=== PATIENT | male | born 1960 | race Caucasian/White ===

== ENCOUNTER 2019-03-27 14:34 | Emergency (ER) | payer OTHER ==
[~2019-03-27] VITALS: Ht 188 cm; Wt 115.2 kg
--- NOTE | 2019-03-27 15:02 | NUR ---
PT SENT BY PMD FOR NEW ONSET OF AFIB, PT IS AAOX4, NOT IN RESPIRATORY DISTRESS, HOOKED TO MONITOR, KEPT RESTED AND COMFORTABLE ,WILL CONTINUE TO MONITOR.
--- NOTE | 2019-03-27 15:05 | NUR ---
SEEN AND EXAMINED BY
--- NOTE | 2019-03-27 15:10 | NUR ---
IV LINE ESTABLISHED, BLOOD DRAWN AND SENT TO LAB.
[2019-03-27 15:48] LABS: BASOPHILS % (AUTO) 0.7 % (0.0-2.0); EOSINOPHILS % (AUTO) 1.9 % (0.0-6.0); HEMATOCRIT 49 % (39-51); HEMOGLOBIN 16.9 g/dL (13.5-17.5); LYMPHOCYTES # (AUTO) 1.7 /CMM (0.8-4.8); LYMPHOCYTES % (AUTO) 26.3 % (20.0-44.0); MEAN CORPUSCULAR HGB CONC 35 g/dl (31.0-36.0); MEAN CORPUSCULAR VOLUME 98 fL (80-96); MONOCYTES # (AUTO) 0.6 /CMM (0.1-1.30); MONOCYTES % (AUTO) 8.7 % (2.0-12.0); NEUTROPHILS % (AUTO) 62.4 % (43.0-81.0); PLATELET COUNT (AUTO) 200 /CMM (150-450); RED BLOOD CELL COUNT(AUTO) 4.97 MIL/uL (4.5-6.0); WHITE BLOOD COUNT (AUTO) 6.5 K/uL (4.3-11.0)
[2019-03-27 15:54] LABS: CALCIUM, SERUM 9.4 mg/dL (8.5-10.1); CARBON DIOXIDE 27 mmol/L (21-32); CHLORIDE 105 mmol/L (98-107); CREATININE 1.1 mg/dL (0.6-1.3); GLUCOSE 98 mg/dL (74-106); POTASSIUM 4.3 mmol/L (3.5-5.1); SODIUM SERUM 139 mmol/L (136-145); UREA NITROGEN, BLOOD 15 mg/dL (7-18)
[2019-03-27] MEDS ORDERED: ASPIRIN 81 MG TAB.CHEW PO ONE (17:00)
[2019-03-27] MEDS ORDERED: MULT-24 PO (17:05)
[2019-03-27] MEDS ORDERED: ASPI-992 PO (17:05)
[2019-03-27] MEDS ORDERED: ASPIRIN 81 MG TAB.CHEW ONE (17:07)
[2019-03-27 17:15] VITALS: BP 128/84
--- NOTE | 2019-03-27 17:15 | NUR ---
IV removed. Catheter intact and site benign. Pressure and 4x4 applied to site. No bleeding noted. Patient discharged to home in stable condition. Written and verbal after care instructions given. Patient verbalizes understanding of instruction.
== END 2019-03-27 17:15 | disposition home or self-care (01) ==
LOC: ER 14:43
DX: I48.91 Unspecified atrial fibrillation (principal); F17.210 Nicotine dependence, cigarettes, uncomplicated; I10 Essential (primary) hypertension; Z90.89 Acquired absence of other organs; Z79.82 Long term (current) use of aspirin
CPT/HCPCS: 36415; 71045-TC; 80048-TC; 84484-TC; 85025-TC

== ENCOUNTER 2021-02-12 21:45 | Emergency (ER) | payer OTHER ==
[~2021-02-12] VITALS: Ht 188 cm; Wt 106.6 kg
[~2021-02-12 21:45] MED LIST: ASPI-992 PO; MULT-24 PO
--- NOTE | 2021-02-12 22:00 | NUR ---
BIBSELF FROM HOME C/O L EYE PAIN SINCE WAKING UP TODAY W/ RED BUMP DENIES BLURRY VISION. RIGHT 1sT TOE BRUISING WITH SWELLING. DENIES TRAUMA SINCE 3x. PT ALERT AND ORIENTED X3.
[2021-02-12] MEDS ORDERED: VANCOMYCIN 1 GM VIAL ONE (22:41)
[2021-02-12] MEDS ORDERED: VANCOMYCIN 500 MG VIAL ONE (22:41)
--- NOTE | 2021-02-12 22:53 | NUR ---
COVID SWAB COLLECTED AND SENT TO LAB
[2021-02-12] MEDS ORDERED: VANCOMYCIN HCL 1.25 GM in IV D5W 260 ML IV ONE (23:00)
[2021-02-12] MEDS ORDERED: IV NS 0.9% 1,000 ML BAG IV ONE (23:00)
[2021-02-12 23:06] LABS: BASOPHILS # (AUTO) 0.1 K/uL (0.0-0.2); BASOPHILS % (AUTO) 0.9 % (0.0-2.0); EOSINOPHILS % (AUTO) 2.4 % (0.0-6.0); HEMATOCRIT 42 % (39-51); HEMOGLOBIN 14.1 g/dL (13.5-17.5); LYMPHOCYTES # (AUTO) 2.3 K/uL (0.8-4.8); LYMPHOCYTES % (AUTO) 41.2 % (20.0-44.0); MEAN CORPUSCULAR HGB CONC 34 g/dl (31.0-36.0); MEAN CORPUSCULAR VOLUME 101 fL (80-96); MONOCYTES # (AUTO) 0.5 K/uL (0.1-1.30); MONOCYTES % (AUTO) 8.9 % (2.0-12.0); NEUTROPHILS # (AUTO) 2.6 K/uL (1.8-8.9); NEUTROPHILS % (AUTO) 46.6 % (43.0-81.0); PLATELET COUNT (AUTO) 289 K/uL (150-450); WHITE BLOOD COUNT (AUTO) 5.6 K/uL (4.3-11.0)
[2021-02-12 23:29] LABS: URIC ACID 6.5 mg/dL (2.6-7.2)
[2021-02-12 23:34] LABS: ALANINE AMINOTRANSFERASE 103 U/L (12-78); ALBUMIN 3.6 g/dL (3.4-5.0); ALKALINE PHOSPHATASE 40 U/L (46-116); ASPARTATE AMINOTRANSFERASE 79 U/L (15-37); BILIRUBIN,DIRECT 0.2 mg/dL (0.0-0.2); BILIRUBIN,TOTAL 0.5 mg/dL (0.2-1.0); CALCIUM, SERUM 8.7 mg/dL (8.5-10.1); CARBON DIOXIDE 27 mmol/L (21-32); CHLORIDE 105 mmol/L (98-107); GLUCOSE 91 mg/dL (74-106); POTASSIUM 4.2 mmol/L (3.5-5.1); SODIUM SERUM 145 mmol/L (136-145); TOTAL PROTEIN, SERUM 7.7 g/dL (6.4-8.2); UREA NITROGEN, BLOOD 13 mg/dL (7-18)
[2021-02-12 23:36] LABS: C-REACTIVE PROTEIN 3.4 mg/dL (0.0-0.9)
[2021-02-12 23:36] LABS: BILIRUBIN,URINE NEGATIVE (NEGATIVE); COLOR,URINE YELLOW (YELLOW); LEUKOCYTE ESTERASE ,URINE NEGATIVE (NEGATIVE); NITRITE, URINE NEGATIVE (NEGATIVE); PROTEIN,URINE NEGATIVE (NEGATIVE); UGLUCOSE NEGATIVE (NEGATIVE)
[2021-02-12 23:43] LABS: BACTERIA,URINE None seen /HPF (None Seen); RBC,URINE 0-2 /HPF (0-2); SQUAMOUS EPITHELIAL CELL,UR Rare /HPF (None Seen); WBC,URINE 0-2 /HPF (0-3)
[2021-02-12] MEDS ORDERED: CEPH500T PO (23:53)
[2021-02-13] MEDS ORDERED: NAPR500T6 PO (00:24)
[2021-02-13] MEDS ORDERED: KETOROLAC TROMETHAMINE INJ 30 MG/ML VIAL ONE (00:25)
[2021-02-13] MEDS ORDERED: KETOROLAC TROMETHAMINE INJ 30 MG/ML VIAL IV ONE (00:30)
--- NOTE | 2021-02-13 00:46 | NUR ---
Patient discharged to home in stable condition. Written and verbal after care instructions given. Patient verbalizes understanding of instruction. RX GIVEN.
[2021-02-13 00:47] VITALS: BP 120/80
== END 2021-02-13 00:47 | disposition home or self-care (01) ==
LOC: ER 21:51
DX: S92.424A Nondisplaced fracture of distal phalanx of right great toe, initial encounter for closed fracture (principal); X58.XXXA Exposure to other specified factors, initial encounter; Y92.89 Other specified places as the place of occurrence of the external cause; M25.562 Pain in left knee; R70.0 Elevated erythrocyte sedimentation rate; Z20.822 Contact with and (suspected) exposure to COVID-19; M79.89 Other specified soft tissue disorders; I10 Essential (primary) hypertension; I48.91 Unspecified atrial fibrillation; Z79.82 Long term (current) use of aspirin; L03.90 Cellulitis, unspecified
CPT/HCPCS: 36415; 71045; 73564; 73630; 80048; 80076; 81001; 83605; 84145; 84484; 84550; 85025; 85652; 85730; 86140; 87040 ×2; 87081; 87086; 87426; 93005; 93970; 96365; 96375; 99285; C9803; J1885; J3370 ×2; J7060

== ENCOUNTER 2021-03-20 19:07 | Emergency (ER) | payer OTHER ==
[~2021-03-20] VITALS: Ht 182.9 cm; Wt 115.2 kg
[~2021-03-20 19:07] MED LIST changes: +CEPH500T PO; +NAPR500T6 PO
--- NOTE | 2021-03-20 19:18 | NUR ---
PT PT BIB RA C/O C/P ONSET APPROXIMATELY 0 LEST SIDED NON-RADIATING STABBING C/P AND SOB. TOOK TWO TABS OF PRESCRIBED NITROGLYCERIN [employer] AND REPORTS IMPROVEMENT IN SOB AND C/P HOWEVER PRESENTS WITH HYPOTENSION UPON ARRIVAL 80/50. PT DENIES ANY SYMPTOMS PLACED ON TIPPLE OILER AND PULSE OX. MD WAS AT BEDSIDE FOR EVAL.
--- NOTE | 2021-03-20 19:22 | NUR ---
XRAY AT BEDSIDE
[2021-03-20] MEDS ORDERED: IV NS 0.9% 500 ML BAG IV ONE (19:30)
[2021-03-20 19:31] LABS: BASOPHILS # (AUTO) 0.1 K/uL (0.0-0.2); BASOPHILS % (AUTO) 0.9 % (0.0-2.0); EOSINOPHILS % (AUTO) 1.9 % (0.0-6.0); HEMATOCRIT 42 % (39-51); HEMOGLOBIN 14.1 g/dL (13.5-17.5); LYMPHOCYTES # (AUTO) 2.5 K/uL (0.8-4.8); LYMPHOCYTES % (AUTO) 37.3 % (20.0-44.0); MEAN CORPUSCULAR HGB CONC 34 g/dl (31.0-36.0); MEAN CORPUSCULAR VOLUME 102 fL (80-96); MONOCYTES # (AUTO) 0.5 K/uL (0.1-1.30); MONOCYTES % (AUTO) 7.4 % (2.0-12.0); NEUTROPHILS # (AUTO) 3.5 K/uL (1.8-8.9); NEUTROPHILS % (AUTO) 52.5 % (43.0-81.0); PLATELET COUNT (AUTO) 269 K/uL (150-450); WHITE BLOOD COUNT (AUTO) 6.7 K/uL (4.3-11.0)
[2021-03-20 20:04] LABS: D-DIMER 0.68 mg/L(FEU (0.17-0.50)
[2021-03-20 21:01] LABS: ALANINE AMINOTRANSFERASE 228 U/L (12-78); ALBUMIN 3.7 g/dL (3.4-5.0); ALKALINE PHOSPHATASE 48 U/L (46-116); ASPARTATE AMINOTRANSFERASE 221 U/L (15-37); BILIRUBIN,DIRECT 0.1 mg/dL (0.0-0.2); BILIRUBIN,TOTAL 0.4 mg/dL (0.2-1.0); CALCIUM, SERUM 8.5 mg/dL (8.5-10.1); CARBON DIOXIDE 21 mmol/L (21-32); CHLORIDE 103 mmol/L (98-107); CREATININE 1.5 mg/dL (0.6-1.3); GLUCOSE 92 mg/dL (74-106); POTASSIUM 4.1 mmol/L (3.5-5.1); SODIUM SERUM 138 mmol/L (136-145); TOTAL PROTEIN, SERUM 6.9 g/dL (6.4-8.2); UREA NITROGEN, BLOOD 15 mg/dL (7-18)
[2021-03-20] MEDS ORDERED: IOHEXOL-350 100 ML VIAL IV ONE (21:27)
[2021-03-20] MEDS ORDERED: IV NS 0.9% 250 ML IV ONE (21:28)
--- NOTE | 2021-03-20 21:30 | NUR ---
pt being transported to CT
--- NOTE | 2021-03-20 21:40 | NUR ---
back from ct
[2021-03-20] MEDS ORDERED: IV LR 500 ML IV ONE (22:00)
[2021-03-20] MEDS ORDERED: SUCRALFATE 1 G TABLET PO ONE (22:00)
[2021-03-20] MEDS ORDERED: SUCRALFATE 1 G TABLET ONE (22:06)
--- NOTE | 2021-03-20 22:16 | NUR ---
PT RECIEVED 500 ML LR VIA 18G RAC AT 2216 AT A RATE OF 1000ML/HR. END TIME 2246.
--- NOTE | 2021-03-20 23:02 | NUR ---
Patient discharged to home in stable condition. Written and verbal after care instructions given. Patient verbalizes understanding of instruction. IV line discontinued. vss at time of discharge.
[2021-03-20 23:07] VITALS: BP 125/88
== END 2021-03-20 23:02 | disposition home or self-care (01) ==
LOC: ER 19:09
DX: R07.89 Other chest pain (principal); F17.210 Nicotine dependence, cigarettes, uncomplicated; I10 Essential (primary) hypertension; I48.91 Unspecified atrial fibrillation; Z90.89 Acquired absence of other organs; Z79.899 Other long term (current) drug therapy; Z79.82 Long term (current) use of aspirin
CPT/HCPCS: 36415; 71045; 71275; 80048; 80076; 80320; 83880; 84484; 85025; 85378; 85730; 93005; 96360; 99285; 99406; J7050; J7070; J7120; Q9967; G0480

== ENCOUNTER → 2021-03-22 | Emergency (ER) | payer OTHER ==
[~2021-03-22] VITALS: Ht 188 cm; Wt 117.9 kg
[~2021-03-22] MED LIST changes: +ASPIRIN EC 81 MG TABLET.DR PO ONE
--- NOTE | 2021-03-22 00:25 | NUR ---
PT BIBRRA 39 PT C/O NONRADIATING CP. TOOK NITRO X1 @ 2350. AFIB @ 88. +NAUSEA/DIZZINESS. LAC#18G NS 500ML INFUSED. A/OX4. TOLERATING R/A WELL.
--- NOTE | 2021-03-22 00:38 | NUR ---
PT A/O X 3 CAME IN FOR CHEST PAIN HX OF AFIB. PT STATES FEELS LIGHT HEADED MD AT BEDSIDE, PLACE ON MONITOR. LABS COLLECTED AND SENT
--- NOTE | 2021-03-22 00:44 | NUR ---
XRAY DONE AT BEDSIDE
[2021-03-22 00:51] LABS: BASOPHILS # (AUTO) 0.1 K/uL (0.0-0.2); HEMOGLOBIN 14.1 g/dL (13.5-17.5); LYMPHOCYTES # (AUTO) 2.9 K/uL (0.8-4.8)
[2021-03-22 01:02] LABS: EOSINOPHILS % (AUTO) 1.2 % (0.0-6.0); HEMATOCRIT 43 % (39-51); LYMPHOCYTES % (AUTO) 35.8 % (20.0-44.0); MEAN CORPUSCULAR HGB CONC 33 g/dl (31.0-36.0); MEAN CORPUSCULAR VOLUME 105 fL (80-96); MONOCYTES # (AUTO) 0.6 K/uL (0.1-1.30); MONOCYTES % (AUTO) 7.8 % (2.0-12.0); NEUTROPHILS # (AUTO) 4.4 K/uL (1.8-8.9); NEUTROPHILS % (AUTO) 54.2 % (43.0-81.0); PLATELET COUNT (AUTO) 252 K/uL (150-450); RED BLOOD CELL COUNT(AUTO) 4.08 MIL/uL (4.5-6.0); WHITE BLOOD COUNT (AUTO) 8.1 K/uL (4.3-11.0)
[2021-03-22 02:12] LABS: CARBON DIOXIDE 18 mmol/L (21-32); CHLORIDE 106 mmol/L (98-107); CREATININE 1.4 mg/dL (0.6-1.3); GLUCOSE 69 mg/dL (74-106); POTASSIUM 4.4 mmol/L (3.5-5.1); SODIUM SERUM 141 mmol/L (136-145); UREA NITROGEN, BLOOD 24 mg/dL (7-18)
--- NOTE | 2021-03-22 04:30 | NUR ---
Patient discharge instructions given . Patient in stable condition denies any sob and chest discomfort. pt discharged in stable condition. Aware to f/u with PCP.
[2021-03-22 04:53] VITALS: BP 133/91
== END | disposition home or self-care (01) ==
LOC: ER 00:24
DX: F10.129 Alcohol abuse with intoxication, unspecified (principal); R07.89 Other chest pain; I48.91 Unspecified atrial fibrillation; I10 Essential (primary) hypertension; F17.210 Nicotine dependence, cigarettes, uncomplicated; Z79.899 Other long term (current) drug therapy; Z79.82 Long term (current) use of aspirin; Y90.8 Blood alcohol level of 240 mg/100 ml or more
CPT/HCPCS: 36415; 71045-TC; 80048-TC; 84484-TC; 85025-TC; G0480

== ENCOUNTER 2023-08-25 20:37 | Emergency (ER) | payer OTHER ==
[~2023-08-25] VITALS: Ht 185.4 cm; Wt 99.8 kg
[~2023-08-25 20:37] MED LIST changes: -ASPIRIN EC 81 MG TABLET.DR PO ONE
[2023-08-25] MEDS: IV NS 0.9% 1,000 ML BAG IV ONE (21:10)
[2023-08-25 21:27] LABS: BASOPHILS # (AUTO) 0.1 K/uL (0.0-0.2); BASOPHILS % (AUTO) 0.8 % (0.0-2.0); EOSINOPHILS # (AUTO) 0.1 K/uL (0.0-0.7); EOSINOPHILS % (AUTO) 1.9 % (0.0-6.0); HEMATOCRIT 44 % (39-51); HEMOGLOBIN 14.9 g/dL (13.5-17.5); LYMPHOCYTES # (AUTO) 2.2 K/uL (0.8-4.8); LYMPHOCYTES % (AUTO) 32.5 % (20.0-44.0); MEAN CORPUSCULAR HEMOGLOBIN 33 PG (26.0-33.0); MEAN CORPUSCULAR HGB CONC 34 g/dl (31.0-36.0); MEAN CORPUSCULAR VOLUME 98 fL (80-96); MONOCYTES # (AUTO) 0.6 K/uL (0.1-1.30); MONOCYTES % (AUTO) 8.3 % (2.0-12.0); NEUTROPHILS # (AUTO) 3.7 K/uL (1.8-8.9); NEUTROPHILS % (AUTO) 56.5 % (43.0-81.0); PLATELET COUNT (AUTO) 251 K/uL (150-450); RED BLOOD CELL COUNT(AUTO) 4.52 MIL/uL (4.5-6.0); RED CELL DISTRIBUTION WIDTH 13.6 % (11.5-15.0); WHITE BLOOD COUNT (AUTO) 6.6 K/uL (4.3-11.0)
[2023-08-25 21:44] LABS: CALCIUM, SERUM 8.9 mg/dL (8.5-10.1); CARBON DIOXIDE 19 mmol/L (21-32); CHLORIDE 103 mmol/L (98-107); CREATININE 1.2 mg/dL (0.6-1.3); GLUCOSE 84 mg/dL (74-106); POTASSIUM 4.1 mmol/L (3.5-5.1); SODIUM SERUM 139 mmol/L (136-145); UREA NITROGEN, BLOOD 24 mg/dL (7-18)
[2023-08-25 21:47] LABS: ALANINE AMINOTRANSFERASE 107 U/L (12-78); ALBUMIN 3.4 g/dL (3.4-5.0); ALCOHOL, BLOOD 212 mg/dL (0-10); ALKALINE PHOSPHATASE 40 U/L (46-116); ASPARTATE AMINOTRANSFERASE 58 U/L (15-37); BILIRUBIN,DIRECT 0.2 mg/dL (0.0-0.2); BILIRUBIN,TOTAL 0.6 mg/dL (0.2-1.0); TOTAL PROTEIN, SERUM 7.5 g/dL (6.4-8.2)
[2023-08-25 22:39] VITALS: BP 133/81; TEMP 98.2; O2SAT 96
[2023-08-25 22:45] LABS: AMPHETAMINE, URINE NEGATIVE (NEGATIVE); BARBITURATE, URINE NEGATIVE (NEGATIVE); BENZODIAZEPINE, URINE NEGATIVE (NEGATIVE); CANNABINOID, URINE NEGATIVE (NEGATIVE); COCCAINE, URINE NEGATIVE (NEGATIVE); OPIATE, URINE NEGATIVE (NEGATIVE); PHENCYCLIDINE SCREEN,URINE NEGATIVE (NEGATIVE)
== END 2023-08-25 22:39 | disposition home or self-care (01) ==
LOC: ER 20:44
DX: F10.129 Alcohol abuse with intoxication, unspecified (principal); R06.02 Shortness of breath; Z72.0 Tobacco use; I48.91 Unspecified atrial fibrillation; I10 Essential (primary) hypertension; Z79.82 Long term (current) use of aspirin; Z79.899 Other long term (current) drug therapy; Y90.7 Blood alcohol level of 200-239 mg/100 ml
CPT/HCPCS: 99285; 96360; 93005; 71045; 85025; 80048; 80076; 36415; 84484; 83880; 80320; 80307; J7030; G0480

== ENCOUNTER 2023-12-07 14:14 | Emergency (ER) | payer OTHER ==
[~2023-12-07] VITALS: Ht 188 cm; Wt 117.9 kg
[2023-12-07 15:40] LABS: BASOPHILS % (AUTO) 0.7 % (0.0-2.0); EOSINOPHILS # (AUTO) 0.2 K/uL (0.0-0.7); EOSINOPHILS % (AUTO) 3.1 % (0.0-6.0); HEMATOCRIT 41 % (39-51); HEMOGLOBIN 13.8 g/dL (13.5-17.5); LYMPHOCYTES # (AUTO) 1.6 K/uL (0.8-4.8); LYMPHOCYTES % (AUTO) 25.5 % (20.0-44.0); MEAN CORPUSCULAR HEMOGLOBIN 33 PG (26.0-33.0); MEAN CORPUSCULAR HGB CONC 34 g/dl (31.0-36.0); MEAN CORPUSCULAR VOLUME 97 fL (80-96); MONOCYTES # (AUTO) 0.7 K/uL (0.1-1.30); MONOCYTES % (AUTO) 11.5 % (2.0-12.0); NEUTROPHILS # (AUTO) 3.8 K/uL (1.8-8.9); NEUTROPHILS % (AUTO) 59.2 % (43.0-81.0); PLATELET COUNT (AUTO) 220 K/uL (150-450); RED CELL DISTRIBUTION WIDTH 14.1 % (11.5-15.0); WHITE BLOOD COUNT (AUTO) 6.4 K/uL (4.3-11.0)
[2023-12-07 15:54] LABS: CALCIUM, SERUM 9.1 mg/dL (8.5-10.1); CARBON DIOXIDE 23 mmol/L (21-32); CHLORIDE 104 mmol/L (98-107); CREATININE 1.1 mg/dL (0.6-1.3); GLUCOSE 95 mg/dL (74-106); POTASSIUM 4.3 mmol/L (3.5-5.1); SODIUM SERUM 138 mmol/L (136-145); UREA NITROGEN, BLOOD 19 mg/dL (7-18)
[2023-12-07 16:09] LABS: NT-PRO BNP 265 pg/mL (0-125)
[2023-12-07 16:39] VITALS: BP 120/70; TEMP 98; O2SAT 98
== END 2023-12-07 16:40 | disposition home or self-care (01) ==
LOC: ER 14:46
DX: M71.22 Synovial cyst of popliteal space [Baker], left knee (principal); R06.02 Shortness of breath; R60.0 Localized edema; R06.00 Dyspnea, unspecified; I48.91 Unspecified atrial fibrillation; I10 Essential (primary) hypertension; F17.210 Nicotine dependence, cigarettes, uncomplicated
CPT/HCPCS: 36415; 71045-TC; 80048-TC; 83880; 84484-TC; 85025-TC; 93970-TC

== ENCOUNTER 2024-08-02 18:08 | Inpatient (IN) | payer OTHER ==
[~2024-08-02] VITALS: Ht 188 cm; Wt 142.6 kg
[2024-08-02] MEDS ORDERED: METO-358 PO (18:31)
[2024-08-02] MEDS ORDERED: AMLO-212 PO (18:31)
[2024-08-02] MEDS ORDERED: ISOS60TA72 PO (18:31)
[2024-08-02] MEDS ORDERED: APIX5TAB PO (18:31)
[2024-08-02] MEDS ORDERED: ATOR10TA PO (18:31)
[2024-08-02] MEDS ORDERED: AMIO100T4 PO (18:31)
[2024-08-02 18:52] LABS: BASOPHILS # (AUTO) 0.1 K/uL (0.0-0.2); EOSINOPHILS # (AUTO) 0.1 K/uL (0.0-0.7); EOSINOPHILS % (AUTO) 1.8 % (0.0-6.0); HEMATOCRIT 51 % (39-51); HEMOGLOBIN 17.6 g/dL (13.5-17.5); LYMPHOCYTES # (AUTO) 2.4 K/uL (0.8-4.8); LYMPHOCYTES % (AUTO) 38.8 % (20.0-44.0); MEAN CORPUSCULAR HEMOGLOBIN 33 PG (26.0-33.0); MEAN CORPUSCULAR HGB CONC 34 g/dl (31.0-36.0); MEAN CORPUSCULAR VOLUME 94 fL (80-96); MONOCYTES # (AUTO) 0.6 K/uL (0.1-1.30); NEUTROPHILS % (AUTO) 48.4 % (43.0-81.0); PLATELET COUNT (AUTO) 286 K/uL (150-450); RED CELL DISTRIBUTION WIDTH 14.2 % (11.5-15.0); WHITE BLOOD COUNT (AUTO) 6.1 K/uL (4.3-11.0)
[2024-08-02 19:06] LABS: CALCIUM, SERUM 8.5 mg/dL (8.5-10.1); CARBON DIOXIDE 26 mmol/L (21-32); CHLORIDE 104 mmol/L (98-107); CREATININE 1.2 mg/dL (0.6-1.3); GLUCOSE 126 mg/dL (74-106); POTASSIUM 4.2 mmol/L (3.5-5.1); SODIUM SERUM 140 mmol/L (136-145); UREA NITROGEN, BLOOD 13 mg/dL (7-18)
[2024-08-02 19:13] LABS: ALANINE AMINOTRANSFERASE 31 U/L (12-78); ALBUMIN 3.4 g/dL (3.4-5.0); ALKALINE PHOSPHATASE 54 U/L (46-116); ASPARTATE AMINOTRANSFERASE 27 U/L (15-37); BILIRUBIN,DIRECT 0.3 mg/dL (0.0-0.2); BILIRUBIN,TOTAL 1.3 mg/dL (0.2-1.0); TOTAL PROTEIN, SERUM 7.9 g/dL (6.4-8.2)
[2024-08-02 19:21] LABS: THYROID STIMULATING HORMONE 1.88 uIU/mL (0.358-3.74)
[2024-08-02] MEDS: FUROSEMIDE 40 MG/4 ML VIAL IV ONE (19:26)
[2024-08-02 20:18] LABS: AMPHETAMINE, URINE NEGATIVE (NEGATIVE); BARBITURATE, URINE NEGATIVE (NEGATIVE); BENZODIAZEPINE, URINE NEGATIVE (NEGATIVE); CANNABINOID, URINE NEGATIVE (NEGATIVE); COCCAINE, URINE NEGATIVE (NEGATIVE); OPIATE, URINE NEGATIVE (NEGATIVE); PHENCYCLIDINE SCREEN,URINE NEGATIVE (NEGATIVE)
[2024-08-02 20:24] LABS: APPEARANCE,URINE CLEAR (CLEAR); BILIRUBIN,URINE NEGATIVE (NEGATIVE); BLOOD, URINE NEGATIVE Ery/uL (NEGATIVE); COLOR,URINE YELLOW (YELLOW); KETONES,URINE NEGATIVE (NEGATIVE); LEUKOCYTE ESTERASE ,URINE NEGATIVE (NEGATIVE); NITRITE, URINE NEGATIVE (NEGATIVE); PROTEIN,URINE NEGATIVE (NEGATIVE); UGLUCOSE NEGATIVE (NEGATIVE); UROBILINOGEN,URINE 0.2 EU/dL (0.2)
[2024-08-02] MEDS ORDERED: Z GUARD REMEDY 4 OZ OINT TP PRN (22:30)
[2024-08-02] MEDS ORDERED: MAG HYDROX/AL HYDROX/SIMETH 30 ML UDC PO PRN (22:30)
[2024-08-02] MEDS ORDERED: MAGNESIUM HYDROXIDE 30 ML UDC PO PRN (22:30)
[2024-08-03] VITALS (8 sets, daily range): BP systolic 93–126; BP diastolic 63–91; TEMP 97.9–98.6; O2SAT 93–96
[2024-08-03] MEDS: ONDANSETRON HCL/PF 4 MG/2 ML VIAL IVP PRN (01:19)
[2024-08-03] MEDS: ACETAMINOPHEN 325 MG TABLET PO PRN (02:04)
[2024-08-03] MEDS: IBUPROFEN 600 MG TABLET PO PRN (06:50)
[2024-08-03 07:14] LABS: BASOPHILS # (AUTO) 0.1 K/uL (0.0-0.2); BASOPHILS % (AUTO) 0.7 % (0.0-2.0); EOSINOPHILS # (AUTO) 0.1 K/uL (0.0-0.7); EOSINOPHILS % (AUTO) 1.2 % (0.0-6.0); HEMATOCRIT 45 % (39-51); HEMOGLOBIN 15.4 g/dL (13.5-17.5); LYMPHOCYTES % (AUTO) 26.1 % (20.0-44.0); MEAN CORPUSCULAR HEMOGLOBIN 32 PG (26.0-33.0); MEAN CORPUSCULAR HGB CONC 34 g/dl (31.0-36.0); MEAN CORPUSCULAR VOLUME 95 fL (80-96); MONOCYTES # (AUTO) 0.9 K/uL (0.1-1.30); MONOCYTES % (AUTO) 11.9 % (2.0-12.0); NEUTROPHILS # (AUTO) 4.6 K/uL (1.8-8.9); NEUTROPHILS % (AUTO) 60.1 % (43.0-81.0); PLATELET COUNT (AUTO) 275 K/uL (150-450); RED BLOOD CELL COUNT(AUTO) 4.78 MIL/uL (4.5-6.0); RED CELL DISTRIBUTION WIDTH 14.3 % (11.5-15.0); WHITE BLOOD COUNT (AUTO) 7.7 K/uL (4.3-11.0)
[2024-08-03 07:26] LABS: CALCIUM, SERUM 8.4 mg/dL (8.5-10.1); CREATININE 1.2 mg/dL (0.6-1.3); MAGNESIUM 1.7 mg/dL (1.8-2.4); PHOSPHORUS 4.9 mg/dL (2.5-4.9); POTASSIUM 4.3 mmol/L (3.5-5.1)
[2024-08-03] MEDS: PANTOPRAZOLE 40 MG TABLET.DR PO SCH (07:31)
[2024-08-03] MEDS: METOPROLOL SUCCINATE 50 MG TAB.SR.24H PO SCH ×2 (08:49→08:52)
[2024-08-03] MEDS: AMLODIPINE BESYLATE 5 MG TABLET PO SCH (08:50)
[2024-08-03] MEDS: ISOSORBIDE MONONITRATE (30MG) 30 MG TAB.SR.24H PO SCH (08:50)
[2024-08-03] MEDS: AMIODARONE HCL 200 MG TABLET PO SCH (08:51)
[2024-08-03] MEDS: IV NS 0.9% 1,000 ML IV PRN (08:51)
[2024-08-03] MEDS: ATORVASTATIN 10 MG TABLET PO SCH (08:52)
[2024-08-03] MEDS ORDERED: APIXABAN 5 MG TABLET PO SCH (09:00)
[2024-08-03] MEDS ORDERED: FUROSEMIDE 20 MG TABLET PO SCH (09:00)
[2024-08-03] MEDS: MAGNESIUM OXIDE 400 MG TABLET PO ONE (09:47)
[2024-08-03] MEDS ORDERED: LORAZEPAM INJ 2 MG/ML VIAL IV PRN (12:00)
[2024-08-03] MEDS: THIAMINE HCL 100 MG TABLET PO SCH (12:52)
[2024-08-04] VITALS: BP 96/61; TEMP 98.1; O2SAT 94
[2024-08-04 04:00] VITALS: BP_SYST 119; BP_SYST 123; BP_SYST 150; BP_DIAS 71; BP_DIAS 98; TEMP 98; O2SAT 96
[2024-08-04 07:25] LABS: BASOPHILS % (AUTO) 0.5 % (0.0-2.0); EOSINOPHILS # (AUTO) 0.1 K/uL (0.0-0.7); HEMATOCRIT 41 % (39-51); HEMOGLOBIN 14.1 g/dL (13.5-17.5); LYMPHOCYTES # (AUTO) 1.6 K/uL (0.8-4.8); LYMPHOCYTES % (AUTO) 24.7 % (20.0-44.0); MEAN CORPUSCULAR HEMOGLOBIN 32 PG (26.0-33.0); MEAN CORPUSCULAR HGB CONC 34 g/dl (31.0-36.0); MEAN CORPUSCULAR VOLUME 94 fL (80-96); MONOCYTES # (AUTO) 0.8 K/uL (0.1-1.30); MONOCYTES % (AUTO) 12.7 % (2.0-12.0); NEUTROPHILS # (AUTO) 3.8 K/uL (1.8-8.9); NEUTROPHILS % (AUTO) 60.1 % (43.0-81.0); PLATELET COUNT (AUTO) 207 K/uL (150-450); RED BLOOD CELL COUNT(AUTO) 4.36 MIL/uL (4.5-6.0); RED CELL DISTRIBUTION WIDTH 14.4 % (11.5-15.0); WHITE BLOOD COUNT (AUTO) 6.4 K/uL (4.3-11.0)
[2024-08-04 08:02] LABS: CALCIUM, SERUM 8.7 mg/dL (8.5-10.1); POTASSIUM 3.4 mmol/L (3.5-5.1)
[2024-08-04] MEDS: CYANOCOBALAMIN 1,000 MCG/ML VIAL IM SCH (13:20)
[2024-08-04] MEDS ORDERED: ZOLPIDEM TARTRATE 5 MG TABLET PO PRN (14:00)
[2024-08-04] MEDS: POTASSIUM CHLORIDE 20 MEQ TAB.PRT.SR PO SCH (14:12)
[2024-08-04] MEDS: CHLORDIAZEPOXIDE HCL 25 MG CAPSULE PO SCH (14:12)
[2024-08-04 16:00] VITALS: BP_SYST 120; BP_SYST 122; BP_DIAS 65; BP_DIAS 67
[2024-08-04 20:00] VITALS: BP 96/59; TEMP 97.7; O2SAT 95
[2024-08-04 20:05] VITALS: BP 113/71
[2024-08-05] VITALS (8 sets, daily range): BP systolic 91–125; BP diastolic 48–70; TEMP 97.5–98.2; O2SAT 95–98
[2024-08-05 06:38] LABS: BASOPHILS % (AUTO) 0.5 % (0.0-2.0); EOSINOPHILS # (AUTO) 0.2 K/uL (0.0-0.7); EOSINOPHILS % (AUTO) 2.2 % (0.0-6.0); HEMATOCRIT 44 % (39-51); HEMOGLOBIN 14.7 g/dL (13.5-17.5); LYMPHOCYTES # (AUTO) 1.5 K/uL (0.8-4.8); LYMPHOCYTES % (AUTO) 22.2 % (20.0-44.0); MEAN CORPUSCULAR HEMOGLOBIN 32 PG (26.0-33.0); MEAN CORPUSCULAR HGB CONC 34 g/dl (31.0-36.0); MEAN CORPUSCULAR VOLUME 95 fL (80-96); MONOCYTES # (AUTO) 0.9 K/uL (0.1-1.30); MONOCYTES % (AUTO) 13.1 % (2.0-12.0); NEUTROPHILS # (AUTO) 4.3 K/uL (1.8-8.9); PLATELET COUNT (AUTO) 219 K/uL (150-450); RED BLOOD CELL COUNT(AUTO) 4.61 MIL/uL (4.5-6.0); RED CELL DISTRIBUTION WIDTH 14.1 % (11.5-15.0); WHITE BLOOD COUNT (AUTO) 6.9 K/uL (4.3-11.0)
[2024-08-05 06:40] LABS: CALCIUM, SERUM 8.8 mg/dL (8.5-10.1); POTASSIUM 4.1 mmol/L (3.5-5.1)
[2024-08-06 07:18] LABS: BASOPHILS % (AUTO) 0.6 % (0.0-2.0); EOSINOPHILS # (AUTO) 0.2 K/uL (0.0-0.7); EOSINOPHILS % (AUTO) 3.6 % (0.0-6.0); HEMATOCRIT 41 % (39-51); HEMOGLOBIN 13.8 g/dL (13.5-17.5); LYMPHOCYTES # (AUTO) 1.3 K/uL (0.8-4.8); LYMPHOCYTES % (AUTO) 24.2 % (20.0-44.0); MEAN CORPUSCULAR HEMOGLOBIN 32 PG (26.0-33.0); MEAN CORPUSCULAR HGB CONC 34 g/dl (31.0-36.0); MEAN CORPUSCULAR VOLUME 95 fL (80-96); MONOCYTES # (AUTO) 0.8 K/uL (0.1-1.30); MONOCYTES % (AUTO) 15.4 % (2.0-12.0); NEUTROPHILS # (AUTO) 3.1 K/uL (1.8-8.9); NEUTROPHILS % (AUTO) 56.2 % (43.0-81.0); PLATELET COUNT (AUTO) 201 K/uL (150-450); RED BLOOD CELL COUNT(AUTO) 4.28 MIL/uL (4.5-6.0); RED CELL DISTRIBUTION WIDTH 14.1 % (11.5-15.0); WHITE BLOOD COUNT (AUTO) 5.4 K/uL (4.3-11.0)
[2024-08-06 07:19] VITALS: BP 132/84; TEMP 97.8; O2SAT 95
[2024-08-06 07:20] VITALS: BP 132/83; TEMP 97.8; O2SAT 95
[2024-08-06 07:30] VITALS: BP_SYST 105; BP_SYST 111; BP_DIAS 76; BP_DIAS 77; TEMP 97.5; O2SAT 96
[2024-08-06 07:35] LABS: CALCIUM, SERUM 8.5 mg/dL (8.5-10.1); CREATININE 1.1 mg/dL (0.6-1.3); POTASSIUM 4.1 mmol/L (3.5-5.1)
[2024-08-06 09:27] VITALS: BP_SYST 111; BP_SYST 113; BP_SYST 133; BP_DIAS 76; BP_DIAS 77; O2SAT 96
[2024-08-06] MEDS ORDERED: METO-358 PO (10:41)
[2024-08-06] MEDS ORDERED: Thiamine HCL PO (10:41)
[2024-08-06] MEDS ORDERED: PANT40TA49 PO (10:41)
[2024-08-06] MEDS ORDERED: APIX5TAB PO (10:54)
[2024-08-06 16:00] VITALS: BP 114/68; TEMP 97.5; O2SAT 96
== END 2024-08-06 18:50 | disposition home or self-care (01) | DRG 74 ==
LOC: ER 18:10 → TELE 21:52 → MED 08-05 09:21
PROVIDERS: ADMIT Nurse Practitioner Family; ATTEND Nurse Practitioner Acute Care
DX: G90.89 Other disorders of autonomic nervous system (principal); Z68.41 Body mass index [BMI] 40.0-44.9, adult; I50.32 Chronic diastolic (congestive) heart failure; F10.129 Alcohol abuse with intoxication, unspecified; Y90.8 Blood alcohol level of 240 mg/100 ml or more; S93.401A Sprain of unspecified ligament of right ankle, initial encounter; E66.9 Obesity, unspecified; W18.30XA Fall on same level, unspecified, initial encounter; Y92.89 Other specified places as the place of occurrence of the external cause; Y99.8 Other external cause status; E78.1 Pure hyperglyceridemia; I11.0 Hypertensive heart disease with heart failure; Z79.899 Other long term (current) drug therapy; Z79.01 Long term (current) use of anticoagulants; E80.6 Other disorders of bilirubin metabolism; F17.200 Nicotine dependence, unspecified, uncomplicated; I48.0 Paroxysmal atrial fibrillation; Z98.890 Other specified postprocedural states
CPT/HCPCS: 36415; 70450-TC; 71045-TC; 73610-TC; 80048-TC; 80061-TC; 80076-TC; 82607-TC; 82962-TC; 83735-TC; 83880; 83921; 84100-TC; 84443-TC; 84484-TC; 85025-TC; 85378-TC; 93307-TC; 93880-TC; 93970-TC; 97110-TC; 97116-TC; 97164; 97530-TC; A4223; G0378; G0480; J1940; J2405; J3420; J7030

== ENCOUNTER 2024-08-10 03:08 | Emergency (ER) | payer OTHER ==
[~2024-08-10] VITALS: Ht 185.4 cm; Wt 122.5 kg
[~2024-08-10 03:08] MED LIST changes: +AMIO100T4 PO; +AMLO-212 PO; +APIX5TAB PO; -ASPI-992 PO; +ATOR10TA PO; -CEPH500T PO; +ISOS60TA72 PO; +METO-358 PO; -MULT-24 PO; -NAPR500T6 PO; +PANT40TA49 PO; +Thiamine HCL PO
[2024-08-10 03:36] VITALS: BP 158/89; TEMP 98.2; O2SAT 98
== END 2024-08-10 03:36 | disposition home or self-care (01) ==
LOC: ER 03:15
DX: J06.9 Acute upper respiratory infection, unspecified (principal); E78.5 Hyperlipidemia, unspecified; F17.210 Nicotine dependence, cigarettes, uncomplicated; I11.0 Hypertensive heart disease with heart failure; I48.91 Unspecified atrial fibrillation; I50.9 Heart failure, unspecified; Z79.01 Long term (current) use of anticoagulants; Z79.899 Other long term (current) drug therapy

== ENCOUNTER 2024-09-27 23:14 | Emergency (ER) | payer OTHER ==
[~2024-09-27] VITALS: Ht 188 cm; Wt 143.3 kg
[2024-09-27 23:55] LABS: BASOPHILS # (AUTO) 0.1 K/uL (0.0-0.2); EOSINOPHILS # (AUTO) 0.2 K/uL (0.0-0.7); EOSINOPHILS % (AUTO) 2.3 % (0.0-6.0); HEMATOCRIT 47 % (39-51); HEMOGLOBIN 16.2 g/dL (13.5-17.5); LYMPHOCYTES # (AUTO) 2.8 K/uL (0.8-4.8); LYMPHOCYTES % (AUTO) 37.6 % (20.0-44.0); MEAN CORPUSCULAR HEMOGLOBIN 33 PG (26.0-33.0); MEAN CORPUSCULAR HGB CONC 35 g/dl (31.0-36.0); MEAN CORPUSCULAR VOLUME 94 fL (80-96); MONOCYTES # (AUTO) 0.9 K/uL (0.1-1.30); MONOCYTES % (AUTO) 12.8 % (2.0-12.0); NEUTROPHILS # (AUTO) 3.4 K/uL (1.8-8.9); NEUTROPHILS % (AUTO) 46.3 % (43.0-81.0); PLATELET COUNT (AUTO) 241 K/uL (150-450); RED BLOOD CELL COUNT(AUTO) 4.99 MIL/uL (4.5-6.0); RED CELL DISTRIBUTION WIDTH 14.1 % (11.5-15.0); WHITE BLOOD COUNT (AUTO) 7.4 K/uL (4.3-11.0)
[2024-09-28 00:09] LABS: INR 1.06 (0.91-1.10); PARTIAL THROMBOPLASTIN TIME 26.8 SEC (24.3-34.3); PROTHROMBIN TIME 11.2 SECS (9.2-11.1)
[2024-09-28 00:36] LABS: CALCIUM, SERUM 8.9 mg/dL (8.5-10.1); CARBON DIOXIDE 21 mmol/L (21-32); CHLORIDE 103 mmol/L (98-107); GLUCOSE 104 mg/dL (74-106); POTASSIUM 3.7 mmol/L (3.5-5.1); SODIUM SERUM 138 mmol/L (136-145); UREA NITROGEN, BLOOD 13 mg/dL (7-18)
[2024-09-28 00:46] LABS: ALANINE AMINOTRANSFERASE 39 U/L (12-78); ALBUMIN 3.2 g/dL (3.4-5.0); ALKALINE PHOSPHATASE 47 U/L (46-116); ASPARTATE AMINOTRANSFERASE 28 U/L (15-37); BILIRUBIN,DIRECT 0.1 mg/dL (0.0-0.2); BILIRUBIN,TOTAL 0.6 mg/dL (0.2-1.0); TOTAL PROTEIN, SERUM 7.3 g/dL (6.4-8.2)
[2024-09-28 01:29] VITALS: BP 107/71; TEMP 98.7; O2SAT 95
== END 2024-09-28 01:30 | disposition left against medical advice (07) ==
LOC: ER 23:18
DX: F10.129 Alcohol abuse with intoxication, unspecified (principal); R07.89 Other chest pain; I11.0 Hypertensive heart disease with heart failure; I50.9 Heart failure, unspecified; E78.5 Hyperlipidemia, unspecified; F17.210 Nicotine dependence, cigarettes, uncomplicated; I48.91 Unspecified atrial fibrillation; Z79.01 Long term (current) use of anticoagulants; Z79.899 Other long term (current) drug therapy; Y90.6 Blood alcohol level of 120-199 mg/100 ml
CPT/HCPCS: 36415; 71045-TC; 80048-TC; 80076-TC; 84484-TC; 85025-TC; 85730-TC; G0480